=== PATIENT | female | born 1975 | race Caucasian/White ===

== ENCOUNTER 2018-06-23 05:35 | Day surgery (SDC) | payer OTHER ==
[~2018-06-23] VITALS: Ht 167.6 cm; Wt 83.9 kg
[2018-06-23] MEDS ORDERED: CEFAZOLIN 1 GM IVPB PREMIX 50 ML IV ONE (07:10)
[2018-06-23] MEDS ORDERED: SEVOFLURANE 15 MIN GAS INH ONE (07:10)
[2018-06-23] MEDS ORDERED: ROPIVACAINE HCL/PF 5 MG/ML 0.5% 30 ML VIAL INJ ONE (07:10)
[2018-06-23] MEDS ORDERED: MIDAZOLAM HCL 5 MG/5 ML VIAL IVP ONE (07:10)
[2018-06-23] MEDS ORDERED: ROCURONIUM BROMIDE 10 MG/ML (ZEMURON) IV ONE (07:10)
[2018-06-23] MEDS ORDERED: ROPIVACAINE HCL/PF 0.2% (NAROPIN) 200 ML PLAST..BAG EP ONE (07:10)
[2018-06-23] MEDS ORDERED: fentaNYL CITRATE/PF 100 MCG/2 ML AMP IVP ONE (07:10)
[2018-06-23] MEDS ORDERED: NS 1000 ML IV.SOLN IV ONE (07:10)
[2018-06-23] MEDS ORDERED: LR 1,000 ML IV.SOLN IV ONE (07:10)
[2018-06-23] MEDS ORDERED: ONDANSETRON HCL 4 MG/2 ML VIAL IVP PRN ×2 (08:00→08:30)
[2018-06-23] MEDS ORDERED: fentaNYL CITRATE/PF 100 MCG/2 ML AMP IVP PRN ×2 (08:00)
[2018-06-23] MEDS ORDERED: KETOROLAC TROMETHAMINE 30 MG VIAL IVP PRN (08:00)
[2018-06-23] MEDS ORDERED: HYDROcodone/ACETAMIN 5-325 MG TAB (NORCO/ VICODIN) PO PRN (08:30)
[2018-06-23] MEDS ORDERED: OXYCODONE/ACETAMINOPHEN 5-325 TABLET PO PRN ×2 (08:30)
[2018-06-23] MEDS ORDERED: KETOROLAC TROMETHAMINE 30 MG VIAL ONE (09:23)
[2018-06-23] MEDS ORDERED: fentaNYL CITRATE/PF 100 MCG/2 ML AMP ONE (09:42)
[2018-06-23] MEDS ORDERED: DIPHENHYDRAMINE INJ 50 MG/ML VIAL IVP ONE (10:15)
[2018-06-23] MEDS ORDERED: DIPHENHYDRAMINE INJ 50 MG/ML VIAL ONE (10:17)
[2018-06-23 11:45] VITALS: BP_SYST 119
[2018-06-23] MEDS ORDERED: OXYCODONE/ACETAMINOPHEN 5-325 TABLET ONE (11:45)
== END 2018-06-23 15:10 | disposition home or self-care (01) ==
LOC: SMU 05:35 → SDS 05:35 → SMU 12:03 → SDS 15:10
PROVIDERS: ATTEND Specialist
DX: D25.0 Submucous leiomyoma of uterus (principal); E78.00 Pure hypercholesterolemia, unspecified; K21.9 Gastro-esophageal reflux disease without esophagitis; Z79.899 Other long term (current) drug therapy; Z98.890 Other specified postprocedural states; N80.0 Endometriosis of uterus; N83.8 Other noninflammatory disorders of ovary, fallopian tube and broad ligament
CPT/HCPCS: 58552; 88307; C1727; J0690; J1200; J1885; J2250; J3010; J7030; J7120; S2900; E0190

== ENCOUNTER 2020-09-04 10:17 | Emergency (ER) | payer OTHER ==
[~2020-09-04] VITALS: Ht 167.6 cm; Wt 83.0 kg
[2020-09-04 10:24] VITALS: BP_SYST 147
[2020-09-04] MEDS ORDERED: HYDROcodone/ACETAMIN 5-325 MG TAB (NORCO/ VICODIN) PO ONE (11:00)
[2020-09-04] MEDS ORDERED: NAPR-688 PO (12:01)
[2020-09-04] MEDS ORDERED: HYDR-3917 PO (12:01)
[2020-09-04 12:35] VITALS: BP_SYST 136
== END 2020-09-04 12:35 | disposition home or self-care (01) ==
LOC: SED 10:17
DX: S52.125A Nondisplaced fracture of head of left radius, initial encounter for closed fracture (principal); S01.81XA Laceration without foreign body of other part of head, initial encounter; S63.601A Unspecified sprain of right thumb, initial encounter; Z79.899 Other long term (current) drug therapy; W01.0XXA Fall on same level from slipping, tripping and stumbling without subsequent striking against object, initial encounter; Y93.89 Activity, other specified; Y92.89 Other specified places as the place of occurrence of the external cause; Y99.8 Other external cause status
CPT/HCPCS: 99284